=== PATIENT | female | born 1980 | race Caucasian/White ===

== ENCOUNTER 2017-12-02 10:30 | Emergency (ER) | payer MEDICAID, OTHER ==
[~2017-12-02 10:30] MED LIST: AMIT-106 PO; AMIT-108 PO; HYDR-4225 PO; IBUP600T22 PO; VARE1TAB4 PO; [UNRECOGNIZED DRUG - CODE] IPL
--- NOTE | 2017-12-02 10:31 | ER Report ---
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 Patient is reported 3-4 days of a rash to the right upper back and posterior neck. She describes the rash as painful and initially had some vesicles that ruptured and now has ulcerations there. The rash also causes some burning pain and is made worse with tightfitting clothing. She denies any fevers or chills she does report some mild nausea. She denies any headaches. She does report a history as a child is having chickenpox. REVIEW OF SYSTEMS: Respiratory: No cough, no dyspnea. Cardiovascular: No chest pain, no palpitations. Gastrointestinal: No vomiting, no abdominal pain. Musculoskeletal: No back pain. Skin: Vesicular rash to the right posterior neck Allergies: Coded Allergies: No Known Drug Allergies (Unverified , 12/02/17) Home Meds Active Scripts Amitriptyline Hcl (AMITRIPTYLINE HCL) 50 Mg Tablet, 1 TAB PO QHS, #90 TAB 3 Refills Prov:GISSELL FROST MD 09/12/17 Hydroxyzine Hcl (HYDROXYZINE HCL) 25 Mg Tablet, 1 TAB PO BID, #180 TAB 3 Refills Prov:GISSELL FROST MD 10/31/16 Discontinued Reported Medications Ibuprofen (IBUPROFEN) 600 Mg Tablet, 1 TAB PO DAILY, TAB 10/31/16 Discontinued Scripts Leg Brace (KNEE BRACE) 1 Each Each, 1 EACH IPL, #1 Prov:GISSELL FROST MD 10/31/16 Past Medical/Surgical History History of chronic pain syndrome Smoking Status: Current: Every Day Smoker, Former Smoker Constitutional Vital Sign - Last 24 Hours 12/02/17 10:35 Temp 97.8 Pulse 100 Resp 16 B/P (MAP) 127/97 Pulse Ox 96 O2 Delivery Room Air Physical Exam General Appearance: The patient is alert, has no immediate need for airway protection and no current signs of toxicity. Eyes: Pupils equal and round no injection. Musculoskeletal: Neck: Neck is supple and non tender. Extremities have full range of motion and are non tender. Skin: Patient has a dermatomal rash to the right posterior neck with erythematous base and ulcerative lesions Medical Decision Making ED Course/Re-evaluation ED Course 12/02/2017 10:52:06 am rash is most consistent with a reactivation of varicella -zoster. Plan at this time will be to treat the patient for shingles. We'll send her home for work for the next 48 hours. I will also prescribe a short course of oral pain medication and oral Zofran. Decision to Disposition Date: Dec 02, 2017 Decision to Disposition Time: 10:52 Depart Departure Latest Vital Signs Vital Signs Date Time Temp Pulse Resp B/P (MAP) Pulse Ox O2 Delivery O2 Flow Rate FiO2 12/02/17 10:35 97.8 100 16 127/97 96 Room Air Impression: Primary Impression: Shingles outbreak Condition: Improved Disposition: HOME OR SELF-CARE Referrals: RAIZA DURAN DNP, STRATEGIC SOURCING SPECIALIST-BC (PCP) 1 Week If symptoms persist. New Scripts Ondansetron Hcl (ZOFRAN) 4 Mg Tablet 4 MG PO Q8H for Nausea, #15 TAB 0 Refills Prov: KRISTEN SANTAMARIA MD 12/02/17 Hydrocodone Bit/Acetaminophen (HYDROCODON-ACETAMINOPHEN 5-325) 1 Each Tablet 1 EACH PO Q4-6H Y for PAIN, #12 TAB 0 Refills TAKE ONE TABLET BY MOUTH EVERY 4-6 HOURS NEEDED FOR PAIN Prov: KRISTEN SANTAMARIA MD 12/02/17 Valacyclovir Hcl (VALTREX) 1,000 Mg Tablet 1000 MG PO TID for 7 Days, #21 TAB 0 Refills Prov: KRISTEN SANTAMARIA MD 12/02/17 Departure Forms: ER Transition Record, Medications Reconciliation, Off Work/ School Form, School or Work Release?: Work Number of days to be released: 2 Patient Portal Information Patient Instructions: Shingles (ED) Problem Qualifiers Primary Impression: Shingles outbreak Herpes zoster complications: without complications Qualified Codes: B02.9 - Zoster without complications KRISTEN SANTAMARIA MD Dec 02, 2017 10:31
[2017-12-02] MEDS ORDERED: LOR5/325 PO (11:01)
[2017-12-02] MEDS ORDERED: ONDA4TAB97 PO (11:01)
[2017-12-02] MEDS ORDERED: VALA100062 PO (11:01)
[2017-12-02 11:06] VITALS: BP 119/88
== END 2017-12-02 11:07 | disposition home or self-care (01) ==
LOC: ER 10:32
DX: B02.9 Zoster without complications (principal)
CPT/HCPCS: 99282

== ENCOUNTER → 2017-12-08 | Outpatient (REF) ==
[~2017-12-08] MED LIST changes: +LOR5/325 PO; +ONDA4TAB97 PO; +VALA100062 PO
[2017-12-08 08:24] LABS: LDL CHOLESTEROL 125 mg/dl
== END ==
DX: Z02.9 Encounter for administrative examinations, unspecified (principal)

== ENCOUNTER → 2017-12-12 | Outpatient (CLI) | payer OTHER ==
[~2017-12-12] MED LIST changes: +AMOX500T10 PO
== END ==
LOC: LAB 16:56
PROVIDERS: ATTEND Surgery
DX: D22.5 Melanocytic nevi of trunk (principal)
CPT/HCPCS: 88305

== ENCOUNTER → 2017-12-29 | Outpatient (CLI) | payer OTHER ==
[~2017-12-29] MED LIST changes: +CODE118S5 PO
== END ==
LOC: LAB 08:12
PROVIDERS: ATTEND Emergency Medicine
DX: J02.9 Acute pharyngitis, unspecified (principal)
CPT/HCPCS: 87081; 87880

== ENCOUNTER → 2018-01-12 | Outpatient (CLI) | payer MEDICAID | LOC: LAB 11:13 | PROVIDERS: ATTEND Surgery | DX: D22.39 Melanocytic nevi of other parts of face (principal) | CPT/HCPCS: 88305 ==

== ENCOUNTER → 2018-02-08 | Outpatient (CLI) | payer MEDICAID ==
[~2018-02-08] MED LIST changes: +FLUT16SP19
== END ==
LOC: AUD 09:30
PROVIDERS: ATTEND Otolaryngology
DX: H72.91 Unspecified perforation of tympanic membrane, right ear (principal)
CPT/HCPCS: 92557; 92567

== ENCOUNTER 2018-06-04 10:30 | Emergency (ER) | payer MEDICAID ==
[2018-06-04] MEDS ORDERED: SULF-198 PO (10:41)
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
[2018-06-04] MEDS ORDERED: ORPHENADRINE 60MG/2ML INJ IM ONE (11:15)
[2018-06-04] MEDS ORDERED: KETOROLAC 60 MG/2 ML VIAL IM ONE (11:15)
[2018-06-04 11:30] VITALS: BP 116/91
[2018-06-04] MEDS ORDERED: CYCL10TA29 PO (11:56)
== END 2018-06-04 12:04 | disposition home or self-care (01) ==
LOC: ER 11:13
DX: M43.6 Torticollis (principal)
CPT/HCPCS: 96372; 99283; J1885; J2360

== ENCOUNTER 2018-10-16 08:25 | Emergency (ER) | payer MEDICAID ==
[~2018-10-16 08:25] MED LIST changes: +CYCL10TA29 PO; +GUAI120L3 PO; +SULF-198 PO
[2018-10-16 09:32] LABS: PLATELET COUNT, AUTOMATED 223 K/uL (150-450)
[2018-10-16 09:38] LABS: INR 0.94
--- NOTE | 2018-10-16 10:16 | ER Report ---
History and Physical Time Seen By MD: 08:30 Hx. of Stated Complaint: bright red blood in toilet. feels "something down there". "tarry" stools (KRISTEN JARVIS MD) HPI/ROS CHIEF COMPLAINT: Blood in stool HISTORY OF PRESENT ILLNESS: 38 her old female presents with chief complaint of bleeding hemorrhoid. She states that this morning she had pain with bowel movement and noted a lot of blood in the toilet. Upon further evaluation, she admits to 2 years of black and tarry stools with intermittent bloody stools, c onstipation and intermittent diarrhea, and intermittent abdominal pain. 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 She denies fever, chills, weight loss. She denies urinary symptoms. She denies vaginal bleeding. She denies family history of malignancy. She has never had endoscopy or colonoscopy or been referred to GI as far as she knows. REVIEW OF SYSTEMS: Constitutional: No fever, no chills. Eyes: No discharge. ENT: No sore throat. Cardiovascular: No chest pain, no palpitations. Respiratory: No cough, no shortness of breath. Gastrointestinal: above Genitourinary: No hematuria. Musculoskeletal: No back pain. Skin: No rashes. Neurological: No headache. Remainder of the 14 system rev: Yes (KRISTEN JARVIS MD) Allergies: Coded Allergies: No Known Drug Allergies (Unverified , 06/04/18) Home Meds Active Scripts Amitriptyline Hcl (AMITRIPTYLINE HCL) 50 Mg Tablet, 1 TAB PO QHS, #90 TAB 0 Refills Prov:GISSELL FROST MD 10/15/18 Cyclobenzaprine Hcl (CYCLOBENZAPRINE HCL) 10 Mg Tablet, 5-10 MG PO TID PRN for M USCLE SPASMS, #9 TAB 0 Refills Prov:SINAI SOLIMAN PIPE CREW FOREMAN-BC 06/04/18 Fluticasone Prop 50 Mcg Ns (FLONASE 50 MCG NS) 16 Gm [place].susp, 2 SPRAYS NA QDAY for 30 Days, #1 BOT 3 Refills Prov:LUCHO MÁRQUEZ JR, MD 02/06/18 Discontinued Reported Medications Sulfamethoxazole/Trimet 800-160 Mg Tab (BACTRIM DS TABLET) 1 Each Tablet, 1 TAB PO Q12H, TAB 06/04/18 Discontinued Scripts Guaifenesin/Codeine Phosphate (Codeine-Guaifen 10-100 mg/5 ml) 120 Ml Liquid, 1- 2 TSP PO Q6H PRN for COUGH, #120 ML 0 Refills Prov:RAIZA DURAN Vamsi DNP, PIPE CREW FOREMAN-BC 08/07/18 Reviewed Nurses Notes: Yes Old Medical Records Reviewed: Yes (KRISTEN JARVIS MD) Smoking Status: Current: Every Day Smoker, Former Smoker Hx Substance Use Disorder: No Hx Alcohol Use: No (KRISTEN JARVIS MD) Constitutional Vital Sign - Last 24 Hours 10/16/18 10/16/18 10/16/18 10/16/18 08:32 08:33 08:40 08:55 Temp 98.2 Pulse 107 101 104 Resp 18 B/P (MAP) 130/79 130/79 (96) Pulse Ox 95 93 93 O2 Delivery Room Air 10/16/18 10/16/18 10/16/18 10/16/18 09:00 09:10 09:25 09:30 Pulse 107 101 B/P (MAP) 124/91 (102) 136/94 (108) Pulse Ox 88 93 10/16/18 10/16/18 10/16/18 10/16/18 09:40 09:55 10:00 10:10 Pulse 105 108 99 B/P (MAP) 128/82 (97) Pulse Ox 93 92 92 10/16/18 10/16/18 10/16/18 10:30 10:45 11:00 Pulse ? 90 B/P (MAP) ???/??? (1665) 140/93 (109) Pulse Ox 92 (KRISTEN YORK MD) Physical Exam General Appearance: The patient is alert, has no immediate need for airway protection and no signs of toxicity. [ ] Eyes: Pupils equal and round no pallor or injection. ENT, Mouth: Mucous membranes are moist. Respiratory: There are no retractions, lungs are clear to auscultation. Cardiovascular: Regular rate and rhythm. [ ] Gastrointestinal: left lower quadrant tenderness. No peritoneal sgs Stool brown mixed with red blood. Small external hemorrhoid that is tender but not thrombosed. Neurological: alert, oriented, moves all ext Skin: Warm and dry, no rashes. Musculoskeletal: Extremities are nontender, nonswollen and have full range of motion. DIFFERENTIAL DIAGNOSIS: After history and physical exam differential diagnosis was considered for abdominal pain including but not limited to appendicitis, cholecystitis, gastritis and urinary tract infection, malignancy, gi bleed, ulcer, or other emergent etiology. (KRISTEN JARVIS MD) Medical Decision Making Data Points Result Diagram: 10/16/18 0920 10/16/18 0920 Laboratory Hematology Test 10/16/18 09:20 10/16/18 09:21 Red Blood Count 4.88 M/uL (4.17-5.56) Mean Corpuscular Volume 97.6 fL (80.0-96.0) Mean Corpuscular Hemoglobin 33.5 pg (26.0-33.0) Mean Corpuscular Hemoglobin Concent 34.3 g/dL (32.0-36.0) Red Cell Distribution Width 13.0 % (11.5-14.5) Mean Platelet Volume 9.2 fL (7.2-11.1) Neutrophils (%) (Auto) 63.1 % (39.4-72.5) Lymphocytes (%) (Auto) 30.5 % (17.6-49.6) Monocytes (%) (Auto) 2.9 % (4.1-12.4) Eosinophils (%) (Auto) 2.7 % (0.4-6.7) Basophils (%) (Auto) 0.8 % (0.3-1.4) Nucleated RBC Relative Count (auto) 0.1 /100WBC Neutrophils # (Auto) 5.9 K/uL (2.0-7.4) Lymphocytes # (Auto) 2.9 K/uL (1.3-3.6) Monocytes # (Auto) 0.3 K/uL (0.3-1.0) Eosinophils # (Auto) 0.3 K/uL (0.0-0.5) Basophils # (Auto) 0.1 K/uL (0.0-0.1) Nucleated RBC Absolute Count (auto) 0.01 K/uL Prothrombin Time 12.6 seconds (12.0-14.4) Prothromb Time International Ratio 0.94 Activated Partial Thromboplast Time 26 seconds (23-35) Sodium Level 138 mmol/L (137-145) Potassium Level 4.0 mmol/L (3.5-5.0) Chloride Level 110 mmol/L (98-107) Carbon Dioxide Level 23 mmol/L (22-31) Blood Urea Nitrogen 15 mg/dl (7-18) Creatinine 0.60 mg/dl (0.52-1.04) Glomerular Filtration Rate Calc > 60.0 Random Glucose 101 mg/dl (75-110) Lactate 1.3 mmol/L (0.7-2.1) Calcium Level 9.1 mg/dl (8.4-10.2) Total Bilirubin 0.8 mg/dl (0.2-1.3) Aspartate Amino Transf (AST/SGOT) 38 U/L (0-35) Alanine Aminotransferase (ALT/SGPT) 71 U/L (0-56) Alkaline Phosphatase 72 U/L (0-126) Total Protein 7.3 g/dl (6.3-8.2) Albumin 4.2 g/dl (3.5-5.0) Lipase 50 U/L (23-300) Stool Occult Blood (IFOB) Positive (NEGATIVE) Chemistry Test 10/16/18 09:20 10/16/18 09:21 White Blood Count 9.4 k/uL (4.5-11.0) Red Blood Count 4.88 M/uL (4.17-5.56) Hemoglobin 16.3 g/dL (12.0-16.0) Hematocrit 47.6 % (34.0-47.0) Mean Corpuscular Volume 97.6 fL (80.0-96.0) Mean Corpuscular Hemoglobin 33.5 pg (26.0-33.0) Mean Corpuscular Hemoglobin Concent 34.3 g/dL (32.0-36.0) Red Cell Distribution Width 13.0 % (11.5-14.5) Platelet Count 223 K/uL (150-450) Mean Platelet Volume 9.2 fL (7.2-11.1) Neutrophils (%) (Auto) 63.1 % (39.4-72.5) Lymphocytes (%) (Auto) 30.5 % (17.6-49.6) Monocytes (%) (Auto) 2.9 % (4.1-12.4) Eosinophils (%) (Auto) 2.7 % (0.4-6.7) Basophils (%) (Auto) 0.8 % (0.3-1.4) Nucleated RBC Relative Count (auto) 0.1 /100WBC Neutrophils # (Auto) 5.9 K/uL (2.0-7.4) Lymphocytes # (Auto) 2.9 K/uL (1.3-3.6) Monocytes # (Auto) 0.3 K/uL (0.3-1.0) Eosinophils # (Auto) 0.3 K/uL (0.0-0.5) Basophils # (Auto) 0.1 K/uL (0.0-0.1) Nucleated RBC Absolute Count (auto) 0.01 K/uL Prothrombin Time 12.6 seconds (12.0-14.4) Prothromb Time International Ratio 0.94 Activated Partial Thromboplast Time 26 seconds (23-35) Glomerular Filtration Rate Calc > 60.0 Lactate 1.3 mmol/L (0.7-2.1) Calcium Level 9.1 mg/dl (8.4-10.2) Total Bilirubin 0.8 mg/dl (0.2-1.3) Aspartate Amino Transf (AST/SGOT) 38 U/L (0-35) Alanine Aminotransferase (ALT/SGPT) 71 U/L (0-56) Alkaline Phosphatase 72 U/L (0-126) Total Protein 7.3 g/dl (6.3-8.2) Albumin 4.2 g/dl (3.5-5.0) Lipase 50 U/L (23-300) Stool Occult Blood (IFOB) Positive (NEGATIVE) Coagulation Test 10/16/18 09:20 Prothrombin Time 12.6 seconds Prothromb Time International Ratio 0.94 Activated Partial Thromboplast Time 26 seconds (KRISTEN YORK MD) EKG/Imaging Imaging FACILITY: [facility] PATIENT NAME: Fatmata Segura : 1980 MR: [id number] V: [id number] EXAM DATE: ORDERING PHYSICIAN: KRISTEN JARVIS TECHNOLOGIST: Location: [facility] [place] Patient: Fatmata Segura : 1980 Visit/Account:[id number] Date of Sevice: 10/16/2018 CT ABDOMEN PELVIS W/ CON HISTORY: abdominal tenderness, rectal bleeding TECHNIQUE: Following administration of IV contrast contiguous axial images acquired through the abdomen/pelvis. Coronal and sagittal reformatting also performed.Dose Lowering Technique One of the following dose optimization techniques was utilized in the performance of this exam: Automated exposure control; adjustment of the mA and/or kV according to the patient's size; or use of an iterative reconstruction technique. Specific details can be referenced in the facility's radiology CT exam operational policy. CONTRAST: 75 mL Isovue-370 COMPARISON: None. FINDINGS: Visualized lung bases: 3 mm calcified granuloma in the right lower lobe Hepatobiliary: There is hepatic steatosis Spleen: Calcified granulomas Adrenals: Negative. Pancreas: Negative. 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 There is a 2.6 cm right ovarian cyst GI: There is mild narrowing within the inferior rectum and also at the rectosigmoid junction. Vessels/spaces/nodes: Negative. Bones/soft tissues: Negative. Additional findings: None pertinent. 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 These could represent areas of focal inflammation however clinical follow-up recommended to exclude annular lesions. Report Dictated By: Mireya Lua MD at 10/16/2018 10:43 AM Report E-Signed By: Mireya Lau MD at 10/16/2018 10:52 AM WSN:[email or web address] (KRISTEN YORK MD) ED Course/Re-evaluation ED Course 38-year-old female presents with bright red blood. She has concerning history cystoscopy with possible GI bleeding for the past 2 years. She does have left lower quadrant tenderness on exam but no peritoneal signs. Initial blood work shows positive Hemoccult. Given findings we'll CT to rule out obstructing mass. If CT does not show surgical finding, patient requires close follow-up with GI and further follow-up per CT findings. We'll turn over to Dr. York awaiting CT. Patient aware of turnover. (KRISTEN JARVIS MD) ED Course Patient was counseled on her CT findings and need for follow-up with general s urgery for colonoscopy. She'll provided with contact determination for Dr. Mobley Decision to Disposition Date: Oct 16, 2018 Decision to Disposition Time: 11:08 (KRISTEN YORK MD) Depart Departure Latest Vital Signs Vital Signs Date Time Temp Pulse Resp B/P (MAP) Pulse Ox O2 Delivery O2 Flow Rate FiO2 10/16/18 11:00 90 140/93 (109) 92 10/16/18 08:32 98.2 18 Room Air (KRISTEN YORK MD) Impression: Primary Impression: Rectal bleeding Condition: Improved Disposition: HOME OR SELF-CARE Referrals: GISSELL FROST MD (PCP) JOCELINE MOBLEY Schedule a follow up appointment for evaluation of abnormal CAT scan results which showed narrowing of the rectum and will most likely require a colonoscopy and biopsy for diagnosis. Patient Instructions: Rectal Bleeding (ED) Additional Instructions: Call the office of DR Mobley this week to make the next available apppointment for evaluation of your abnormal CAT scan findings KRISTEN JARVIS MD Oct 16, 2018 10:16 KRISTEN YORK MD Oct 16, 2018 11:08
--- NOTE | 2018-10-16 10:56 | RADIOLOGY IMAGING REPORT ---
FACILITY: [facility] [place] PATIENT NAME: Fatmata Segura : 1980 MR: [id number] V: [id number] EXAM DATE: ORDERING PHYSICIAN: KRISTEN JARVIS TECHNOLOGIST: Location: [facility] - [place] Patient: Fatmata Segura : 1980 Visit/Account:[id number] Date of Sevice: 10/16/2018 CT ABDOMEN PELVIS W/ CON HISTORY: abdominal tenderness, rectal bleeding TECHNIQUE: Following administration of IV contrast contiguous axial images acquired through the abdom en/pelvis. Coronal and sagittal reformatting also performed.Dose Lowering Technique One of the following dose optimization techniques was utilized in the performance of this exam: Autom ated exposure control; adjustment of the mA and/or kV according to the patient's size; or use of an i terative reconstruction technique. Specific details can be referenced in the facility's radiology C T exam operational policy. CONTRAST: 75 mL Isovue-370 COMPARISON: None. FINDINGS: Visualized lung bases: 3 mm calcified granuloma in the right lower lobe Hepatobiliary: There is hepatic steatosis Spleen: Calcified granulomas Adrenals: Negative. Pancreas: Negative. Kidneys ureters or bladder: There is ptosis of the left kidney with duplication of the left renal col lecting system and partial malrotation Genitalia: Uterus appears heterogeneous. There is a 2.6 cm right ovarian cyst GI: There is mild narrowing within the inferior rectum and also at the rectosigmoid junction. Vessels/spaces/nodes: Negative. Bones/soft tissues: Negative. Additional findings: None pertinent. 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 These coul d represent areas of focal inflammation however clinical follow-up recommended to exclude annular les ions. Report Dictated By: Mireya Lua MD at 10/16/2018 10:43 AM Report E-Signed By: Mireya Lua MD at 10/16/2018 10:52 AM WSN:[email or web address]
[2018-10-16 11:00] VITALS: BP 140/93
== END 2018-10-16 11:17 | disposition home or self-care (01) ==
LOC: ER 09:00
DX: K62.5 Hemorrhage of anus and rectum (principal)
CPT/HCPCS: 74177; 82040; 82247; 82274; 82310; 82374; 82435; 82565; 82947; 83605; 83690; 84075; 84132; 84155; 84295; 84450; 84460; 84520; 85025; 85610; 85730; 99284; Q9967

== ENCOUNTER 2018-11-06 01:04 | Day surgery (SDC) | payer MEDICAID ==
[~2018-11-06] VITALS: Ht 154.9 cm; Wt 88.0 kg
[2018-11-06] VITALS (8 sets, daily range): BP systolic 112–142; BP diastolic 73–107
[2018-11-06] MEDS ORDERED: LIDOCAINE/SOD BICARB 8.4% SYR ID ONE (08:25)
[2018-11-06] MEDS ORDERED: NORMOSOL R SOLN(*) 1000 ML BAG 1,000 ML IV PRN (08:25)
[2018-11-06] MEDS ORDERED: PANT40TA65 PO (10:45)
--- NOTE | 2018-11-06 10:48 | Short(Outpt) Discharge Summary ---
Discharge Summary Reason for Hosp/Final Diag: (1) Rectal bleeding Status: Acute Hospital Course & Plan: pt presented for egd and colonoscopy. she tolerated the procedure well and there were no complications. path pending. she will be discharged home when criteria met. Departure Discharge to: Home Discharge Instructions Home Meds Active Scripts Pantoprazole Sodium (PANTOPRAZOLE SODIUM) 40 Mg Tablet.dr, 40 MG PO QDAY, #30 TAB.SR 1 Refill Prov:JOCELINE MOBLEY 11/06/18 Amitriptyline Hcl (AMITRIPTYLINE HCL) 50 Mg Tablet, 1 TAB PO QHS, #90 TAB 0 Refills Prov:GISSELL FROST MD 10/15/18 Fluticasone Prop 50 Mcg Ns (FLONASE 50 MCG NS) 16 Gm [place].susp, 2 SPRAYS NA QDAY for 30 Days, #1 BOT 3 Refills Prov:LUCHO MÁRQUEZ JR, MD 02/06/18 Diet: Regular Activity: As Tolerated Special Instructions: we will call you in about 10 days with biopsy results. JOCELINE MOBLEY Nov 06, 2018 10:48
--- NOTE | 2018-11-06 12:05 | OPERATIVE REPORT 1 ---
EVENT DATE: November 06, 2018 SURGEON: Shivam Ryan MD ANESTHESIOLOGIST: Fam Quinteros MD ANESTHESIA: MAC. FEED INSPECTION SUPERVISOR: None. PREOPERATIVE DIAGNOSES 1. Gastrointestinal bleed. 2. Abnormal imaging on computed tomography scan. 3. Abdominal pain. POSTOPERATIVE DIAGNOSES 1. Gastrointestinal bleed. 2. Abnormal imaging on computed tomography scan. 3. Abdominal pain. 4. Schatzki's ring. 5. Esophagitis. 6. Mild gastritis. 7. Small hiatal hernia. PROCEDURES PERFORMED 1. Esophagogastroduodenoscopy with biopsy. 2. Colonoscopy with biopsy. FLUIDS IV crystalloids. ESTIMATED BLOOD LOSS Minimal. SPECIMENS 1. Antrum for histology and H. pylori. 2. GE junction. 3. Rectum and rectosigmoid colon. COMPLICATIONS None. INDICATIONS This is a 38-year old female with bright red blood per rectum for years. It recently worsened. She has also had dark tarry stools. She has had diffuse abdominal pain. She had a CT scan that showed abnormal rectum and rectosigmoid. The risks and benefits of the procedure were explained and consent was signed. DESCRIPTION OF PROCEDURE The patient was taken to the GI Suite and placed in the left lateral position. MAC anesthesia was administered per the Anesthesia team. Bite block had been placed. The gastroscope was advanced through the oropharynx down the esophagus and into the stomach. There was mild gastritis in the antrum. The remainder of the stomach including retroflexion was unremarkable. The gastroscope was passed into the first and second portions of the duodenum, which were unremarkable. The scope was withdrawn back into the stomach. Biopsies were taken from the antrum for histology and H. pylori. The gastroscope was withdrawn into the distal esophagus. There was a mild Schatzki's ring. There was some bleeding from this after the scope had passed through it. There was also mild esophagitis in the area of the GE junction. Biopsies were taken. There was a small hiatal hernia. The gastroscope was withdrawn. The patient tolerated the procedure well. There were no complications. Colonoscopy was then performed. Perianal exam revealed a posterior fissure as well as some tags. Digital rectal exam revealed no masses. Colonoscope was advanced through the anus under direct vision. It was passed through the colon in its entirety to the cecum. The cecum was identified by the ileocecal valve and the appendiceal orifice. The scope was then slowly withdrawn. There were no masses and no polyps. I did take biopsies in the rectosigmoid junction and the rectum as this was the area of abnormality on the CT scan. There were moderate internal hemorrhoids. Carbon dioxide was suctioned from the rectum. The scope was withdrawn. The patient tolerated the procedure well. There were no complications. ZOYA
== END 2018-11-06 12:05 | disposition home or self-care (01) ==
LOC: OR 01:04
PROVIDERS: ATTEND Surgery
DX: K92.2 Gastrointestinal hemorrhage, unspecified (principal); R93.5 Abnormal findings on diagnostic imaging of other abdominal regions, including retroperitoneum; K22.2 Esophageal obstruction; K44.9 Diaphragmatic hernia without obstruction or gangrene; F41.9 Anxiety disorder, unspecified; F32.9 Major depressive disorder, single episode, unspecified; E21.3 Hyperparathyroidism, unspecified; Z87.891 Personal history of nicotine dependence; Z79.899 Other long term (current) drug therapy
CPT/HCPCS: 81025; 87077; 88305; 88313; 88344

== ENCOUNTER 2018-11-20 08:45 | Outpatient (RCR) | payer MEDICAID ==
[~2018-11-20 08:45] MED LIST changes: +LIRA3PEN SUBQ; +PANT40TA65 PO
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
== END 2018-11-20 18:00 | disposition home or self-care (01) ==
LOC: PT 08:45
PROVIDERS: ATTEND Emergency Medicine
DX: M54.2 Cervicalgia (principal); M25.511 Pain in right shoulder; M25.512 Pain in left shoulder
CPT/HCPCS: 97161

== ENCOUNTER → 2019-01-23 | Outpatient (CLI) | payer MEDICAID ==
[~2019-01-23] MED LIST changes: +PHEN-580 PO
== END ==
LOC: RESP 01:37
PROVIDERS: ATTEND Emergency Medicine
DX: G47.33 Obstructive sleep apnea (adult) (pediatric) (principal)

== ENCOUNTER → 2019-02-13 | Outpatient (CLI) | payer MEDICAID ==
[~2019-02-13] MED LIST changes: +SPIR25TA80 PO
== END ==
LOC: LAB 09:38
PROVIDERS: ATTEND Emergency Medicine
DX: G62.9 Polyneuropathy, unspecified (principal)
CPT/HCPCS: 36415; 82607; 83036

== ENCOUNTER → 2019-02-22 | Outpatient (CLI) | payer MEDICAID | LOC: AUD 10:30 | PROVIDERS: ATTEND Otolaryngology | DX: H69.83 Other specified disorders of Eustachian tube, bilateral (principal) | CPT/HCPCS: 92552; 92567 ==

== ENCOUNTER → 2019-04-09 | Outpatient (CLI) | payer MEDICAID | LOC: LAB 16:37 | PROVIDERS: ATTEND Emergency Medicine | DX: R94.8 Abnormal results of function studies of other organs and systems (principal); Z79.899 Other long term (current) drug therapy | CPT/HCPCS: 36415; 82040; 82247; 82248; 82310; 82374; 82435; 82565; 82947; 84075; 84132; 84155; 84295; 84450; 84460; 84520 ==